=== PATIENT | female | born 1985 | race Caucasian/White ===

== ENCOUNTER 2018-04-10 07:16 | Emergency (ER) | payer MEDICAID ==
--- NOTE | 2018-04-10 07:29 | ER Document Report ---
ED General - General Stated Complaint: RIGHT HIP PAIN Time Seen by Provider: 04/10/18 07:28 Mode of Arrival: Medic Information source: Patient, Parent TRAVEL OUTSIDE OF THE [place] IN LAST 30 DAYS: No - HPI Notes: 32-year-old female with a history of cerebral palsy presents to the ED with complaints of right hip pain that mother noticed last night. Denies any trauma or falling. Patient did have a colonoscopy yesterday in the morning, patient started complaining she was getting ready for bed. No obrx-meg-alfopty medication is been tried. Per mother patient is grimacing when right hip is touched. Vaccinations are up-to-date. Denies any history of osteoporosis. Denies fevers, chills, chest pain,palpitations, shortness of breath, dyspnea, nausea, vomiting, diarrhea, abdominal pain, hematuria,blurred vision, double vision, loss of vision, speech changes, LH, dizziness, syncope, headaches, wheezing, ST, URI, neck pain, weakness, bowel or bladder dysfunction, saddle anesthesia, numbness or tingling in bilateral upper or lower extremities equally , muscle paralysis, weakness in bilateral upper or lower extremities equally or rash. Denies IV drug use. - Related Data Allergies/Adverse Reactions: No Known Allergies Allergy (Verified 04/10/18 08:02) Past Medical History - General Information source: Patient, Parent - Social History Smoking Status: Never Smoker Family History: Reviewed & Not Pertinent - Past Medical History Cardiac Medical History: Denies: Hx Heart Attack, Hx Hypertension Pulmonary Medical History: Denies: Hx Asthma, Hx Bronchitis, Hx COPD, Hx Pneumonia Neurological Medical History: Reports: Hx Seizures. Denies: Hx Cerebrovascular Accident GI Medical History: Musculoskeletal Medical History: Denies Hx Arthritis Infectious Medical History: Past Surgical History: Denies: Hx Pacemaker - Immunizations Hx Diphtheria, Pertussis, Tetanus Vaccination: No Review of Systems - Review of Systems Constitutional: No symptoms reported EENT: No symptoms reported Cardiovascular: No symptoms reported Respiratory: No symptoms reported Gastrointestinal: No symptoms reported Genitourinary: No symptoms reported Female Genitourinary: No symptoms reported Musculoskeletal: See HPI Skin: No symptoms reported Hematologic/Lymphatic: No symptoms reported Neurological/Psychological: No symptoms reported Physical Exam - Vital signs Vitals: Temp Pulse Resp BP Pulse Ox 97.2 F 84 18 145/92 H 98 04/10/18 07:45 04/10/18 07:45 04/10/18 07:45 04/10/18 07:45 04/10/18 07:45 - Notes Notes: PHYSICAL EXAMINATION: GENERAL: Well-appearing, well-nourished and in no acute distress. HEAD: Atraumatic, normocephalic. EYES: Pupils equal round and reactive to light, extraocular movements intact, conjunctiva are normal. ENT: Nares patent, oropharynx clear without exudates. Moist mucous membranes. NECK: Normal range of motion, supple without lymphadenopathy LUNGS: Breath sounds clear to auscultation bilaterally and equal. No wheezes rales or rhonchi. HEART: Regular rate and rhythm without murmurs ABDOMEN: Soft, nontender, nondistended abdomen. No guarding, no rebound. No masses appreciated. Female : deferred Musculoskeletal: Normal range of motion, no pitting or edema. No cyanosis. right hip noted pain with abduction and extension with initial movement. . dtr + 2 bilaterally and equally in BLE. full motor and sensory function. normal gait. cap refill < 3 seconds. distal pulses + 2 in BLE. lower back examination wnl. No erythema, warmth to touch, deformity, crepitus or obvious asymmetry of the affected leg compared to other of hips equally. NEUROLOGICAL: Normal speech, normal gait. Normal sensory, motor exams. alert, awake. PSYCH: Normal mood, normal affect. SKIN: Warm, Dry, normal turgor, no rashes or lesions noted. Course - Re-evaluation Re-evalutation: 04/10/18 08:33 Afebrile, vitals stable and in no distress female resents for evaluation of right hip pain after she had a normal colonoscopy yesterday. X-rays of the right hip are negative for any acute fractures dislocations. Discussed with patient and parent that her right hip pain is likely due to being on her right side during her colonoscopy yesterday. Advised to give ffir-tap-ebknpge ibuprofen and Tylenol. Patient is not having any pain in her lumbar spine seen on clinical examination. We discussed to follow-up with primary care provider and orthopedic referral given if she is still experiencing pain in 1 week. Advised the patient experiences any fevers, chills, numbness or tingling down bilateral lower extremities or change in bowel or bladder function to return to the emergency room immediately. Low suspicion for open fracture, compartment syndrome, tendon rupture, acute neurovascular injury, retained foreign body, therefore the discharge disposition is reasonable no evidence of peritonitis, sepsis or toxicity. I have reevaluated this patient multiple times and no significant life threatening changes are noted. The patient and I have discussed the diagnosis and risks, and we agree with discharging home with close follow-up with the understanding that symptoms and presentations can change. We also discussed returning to the Emergency Department immediately if new or worsening symptoms occur. 04/10/18 09:38 - Vital Signs Vital signs: Temp Pulse Resp BP Pulse Ox 97.2 F 84 18 145/92 H 98 04/10/18 07:45 04/10/18 07:45 04/10/18 07:45 04/10/18 07:45 04/10/18 07:45 Discharge - Discharge Clinical Impression: Sprain of right hip Condition: Stable Disposition: HOME, SELF-CARE Instructions: Sprain ([facility]) Additional Instructions: Rest, her to pertain ice and heat 20 minutes on 20 minutes off several times a day, follow-up with primary care and branch service specialist within 3 days as needed. If symptoms become worse such as numbness and tingling down leg, fever , abdominal pain, lower back pain etc. return to the emergency room immediately. Return immediately for any new or worsening symptoms. Follow up with primary care provider, call tomorrow to make followup appointment. Referrals: PETAR MELGAR MD [ACTIVE STAFF] - Follow up in 3-5 days (as needed) CARTER LE MD [ACTIVE STAFF] - Follow up as needed
--- NOTE | 2018-04-10 08:42 | RADIOLOGY REPORT (SQ) ---
EXAM DESCRIPTION: HIP RIGHT AP/LATERAL COMPLETED DATE/TIME: 04/10/2018 7:54 am REASON FOR STUDY: new onset pain to right hip, unsure of fall. COMPARISON: None. NUMBER OF VIEWS: Two views. TECHNIQUE: AP pelvis and additional frog-leg view of the right hip. LIMITATIONS: None. FINDINGS: MINERALIZATION: Normal. PRIMARY HIP: No fracture or dislocation. No worrisome bone lesions. OPPOSITE HIP: No fracture or dislocation. No worrisome bone lesions. PUBIS AND ISCHIUM: No fracture. PELVIS: No fracture. SACRUM: No fracture or dislocation. No worrisome bone lesions. LOWER LUMBAR SPINE: No fracture or dislocation. No worrisome bone lesions. No significant disc disea se. SOFT TISSUES: No findings. OTHER: No other significant finding. IMPRESSION: NEGATIVE STUDY OF THE RIGHT HIP AND PELVIS. NO ACUTE POST-TRAUMATIC CHANGES. NO EXPLANAT ION FOR PAIN. TECHNICAL DOCUMENTATION: JOB ID: [id number] [employer]- All Rights Reserved Reading location - IP/workstation name: [email or web address]
[2018-04-10 08:59] VITALS: BP 145/92
== END 2018-04-10 09:20 | disposition home or self-care (01) ==
LOC: ER 07:16
DX: S73.101A Unspecified sprain of right hip, initial encounter (principal); X58.XXXA Exposure to other specified factors, initial encounter
CPT/HCPCS: 99283

== ENCOUNTER → 2018-06-12 | Outpatient (CLI) | payer MEDICAID ==
--- NOTE | 2018-06-13 12:58 | EEG PRO FEE REPORT ---
EEG INTERPRETATION PATIENT NAME: AIMEE MCCARTHY ROOM#: ORDER#: [id number] DATE OF STUDY: 06/12/2018 : 1985 REFERRING MD: ROSA MARIA ORELLANA M.D. 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 This EEG was requested for seizures. EEG Interpretation This EEG was recorded in the awake and drowsy states. The awake EEG was filled with significant muscle artifact impairing interpretation. A briefly seen 8 Hz posterior rhythm was noted on the left with relative suppression on the right. The remainder of the background consisted of a mix of mostly theta with intermittent delta. Drowsiness is characterized by slowing of the background rhythms. Photic stimulation resulted in no significant changes. There were no epileptiform abnormalities noted. The EKG showed a regular rhythm. EEG Classification 1. Generalized background slowing 2. Asymmetry, suppression on the right 3. Significant muscle artifact EEG Impression This EEG is abnormal. It is consistent with diffuse cerebral dysfunction and structural lesion on the right. Correlation with neuroimaging would be of interest. The study was impaired due to significant muscle artifact throughout the recording. INTERPRETING PHYSICIAN: ISA CASTRO M.D. /: MTNORMAN TT: [id number] ID: [id number] /: [id number] TD: [id number] JOB: [id number] cc:Chastity FOURNIER M.D. > MTDD
== END ==
LOC: NEURO 12:28
PROVIDERS: ATTEND Pediatrics
DX: G40.909 Epilepsy, unspecified, not intractable, without status epilepticus (principal); G91.9 Hydrocephalus, unspecified; G93.40 Encephalopathy, unspecified
CPT/HCPCS: 95819

== ENCOUNTER → 2018-06-27 | Outpatient (CLI) | payer MEDICAID ==
[2018-06-27 09:41] LABS: ABSOLUTE BASOPHILS # (AUTO) 0.1 10^3/uL (0.0-0.2); ABSOLUTE LYMPHOCYTES (AUTO) 1.9 10^3/uL (0.5-4.7); ABSOLUTE MONOCYTES (AUTO) 0.3 10^3/uL (0.1-1.4); ABSOLUTE NEUT (AUTO) 2.9 10^3/uL (1.7-8.2); BASOPHILS % (AUTO) 1.1 % (0-2); EOSINOPHILS % (AUTO) 0.4 % (0-6); HEMATOCRIT 42.3 % (36.0-47.0); HEMOGLOBIN 14.2 g/dL (12.0-15.5); LYMPHOCYTES % (AUTO) 35.8 % (13-45); MEAN CORPUSCULAR HGB CONC 33.5 g/dL (32.0-36.0); MEAN CORPUSCULAR VOLUME 84 fl (80-97); MONOCYTES % (AUTO) 6.4 % (3-13); PLATELET COUNT 275 10^3/uL (150-450); RED BLOOD COUNT 5.07 10^6/uL (3.72-5.28); RED CELL DISTRIBUTION WIDTH 18.1 % (11.5-14.0); SEGMENTED NEUTROPHILS % (AUTO) 56.3 % (42-78); TOTAL CELLS COUNTED % (AUTO) 100 %; WHITE BLOOD COUNT 5.2 10^3/uL (4.0-10.5)
[2018-06-27 09:59] LABS: ALANINE AMINOTRANSFERASE 18 U/L (9-52); ALBUMIN 4.4 g/dL (3.5-5.0); ALKALINE PHOSPHATASE 70 U/L (38-126); ANION GAP 10 (5-19); ASPARTATE AMINO TRANSFERASE 16 U/L (14-36); BILIRUBIN,DIRECT 0.2 mg/dL (0.0-0.4); BILIRUBIN,TOTAL 0.3 mg/dL (0.2-1.3); BLOOD UREA NITROGEN 8 mg/dL (7-20); CALCIUM 9.8 mg/dL (8.4-10.2); CARBON DIOXIDE 25 mmol/L (22-30); CHLORIDE 106 mmol/L (98-107); GLUCOSE 105 mg/dL (75-110); POTASSIUM 4.1 mmol/L (3.6-5.0); SODIUM 141.1 mmol/L (137-145); TOTAL PROTEIN 7.7 g/dL (6.3-8.2)
== END ==
LOC: OD 07:53
PROVIDERS: ATTEND Internal Medicine Cardiovascular Disease
DX: R60.9 Edema, unspecified (principal); G40.909 Epilepsy, unspecified, not intractable, without status epilepticus; G93.40 Encephalopathy, unspecified; G91.9 Hydrocephalus, unspecified; F79 Unspecified intellectual disabilities; Z98.2 Presence of cerebrospinal fluid drainage device
CPT/HCPCS: 36415; 80053; 80156; 83880; 84443; 85025

== ENCOUNTER 2018-08-14 05:14 | Day surgery (SDC) | payer MEDICAID ==
[~2018-08-14 05:14] MED LIST: LACTATED RINGERS 1000 ML IV PRN; LIDOCAINE 0.5% INJ-PF (5 MG/ML) 50 ML SDV SUBCUT PRN
[2018-08-14] MEDS ORDERED: LIDOCAINE 1% INJ-PF (10 MG/ML) 30 ML SDV ONE (06:45)
[2018-08-14] MEDS ORDERED: MIDAZOLAM 2 MG/2 ML INJ ONE (06:51)
[2018-08-14] MEDS ORDERED: FENTANYL CITRATE INJ/PF 100 MCG/2 ML AMPUL ONE (06:51)
[2018-08-14] MEDS ORDERED: EPHEDRINE SULFATE INJ 50 MG/1 ML AMPULE ONE (06:51)
[2018-08-14] MEDS ORDERED: PROPOFOL INJ 200 MG/20 ML VIAL IV ONE (06:52)
[2018-08-14] MEDS ORDERED: OXYCODONE-ACETAMINOPHEN 5-325 MG TABLET PO PRN ×2 (07:19)
[2018-08-14] MEDS ORDERED: MORPHINE SULFATE 10 MG/ML INJ IV PRN (07:19)
[2018-08-14] MEDS ORDERED: DIPHENHYDRAMINE HCL 50 MG/ML VIAL IV PRN (07:19)
[2018-08-14] MEDS ORDERED: MEPERIDINE HCL/PF INJ 25 MG/1 ML DISP.SYRIN IV PRN (07:19)
[2018-08-14] MEDS ORDERED: PROMETHAZINE HCL INJ 25 MG/1 ML VIAL IV PRN ×2 (07:19)
[2018-08-14] MEDS ORDERED: ONDANSETRON HCL INJ/PF 4 MG/2 ML SDV IV PRN (07:19)
[2018-08-14] MEDS ORDERED: FENTANYL CITRATE INJ/PF 100 MCG/2 ML AMPUL IV PRN ×3 (07:19)
--- NOTE | 2018-08-14 07:56 | OPERATIVE REPORT E ---
Operative Report NAME: AIMEE MCCARTHY : 1985 AGE: 32Y DATE OF SURGERY: 08/14/2018 ROOM: PREOPERATIVE DIAGNOSES: 1. Cerebral palsy. 2. Vaginal discharge, needs exam under anesthesia. POSTOPERATIVE DIAGNOSES: 1. Cerebral palsy. 2. Vaginal discharge, needs exam under anesthesia. PROCEDURE: Exam under anesthesia, Pap *------* smear, HPV screening, SD screening. SURGEON: AJ HUMPHREY M.D. COMPLICATIONS: None. ANESTHESIA: LMAC. FINDINGS: Normal pelvis, normal cervix. No adnexal masses appreciated. No vaginal lesions were noted. Intact hymenal ring was noted upon examination. No lesions in the vulva were noted. A mucusy-type vaginal discharge was present. Pap smear was performed. DESCRIPTION OF PROCEDURE: The patient was taken to the operating room and placed supine in the lithotomy position after adequate anesthesia was ascertained to protect it the entire time. Using a pediatric speculum, the cervix was identified and vagina was noted. Above noted findings were appreciated. Pap smear was obtained and taken to the office for processing. At completion of procedure, patient awakened and taken to recovery room in stable condition. DICTATING PHYSICIAN: AJ HUMPHREY M.D. [id number] PHY#: [id number] ID: [id number] JOB#: [id number] ACCT: [id number] cc:AJ HUMPHREY M.D. >
[2018-08-14 08:33] VITALS: BP 129/92
== END 2018-08-14 08:40 | disposition home or self-care (01) ==
LOC: OROUT 05:14
PROVIDERS: ATTEND Specialist
DX: N94.4 Primary dysmenorrhea (principal); G80.2 Spastic hemiplegic cerebral palsy; N89.8 Other specified noninflammatory disorders of vagina
CPT/HCPCS: 36415; 84132; 81025; 57410; J2250; J2704; 940; J3010; J3490

== ENCOUNTER → 2018-11-20 | Outpatient (CLI) | payer MEDICAID ==
--- NOTE | 2018-11-20 12:16 | RADIOLOGY REPORT (SQ) ---
EXAM DESCRIPTION: CT RT LOWER EXTREMITY WITHOUT COMPLETED DATE/TIME: 11/20/2018 11:59 am REASON FOR STUDY: PAIN IN R HIP M25.551 PAIN IN RIGHT HIP COMPARISON: None. TECHNIQUE: Axial imaging performed through the right hip with reformatted coronal and sagittal imagi ng windowed for bone and soft tissues. Images saved to PACS. 3D IMAGING: Were 3D images as MIP, SSD, or volume rendering performed at the work station? Yes. All CT scanners at this facility use dose modulation, iterative reconstruction, and/or weight based d osing when appropriate to reduce radiation dose to as low as reasonably achievable (ALARA). [facility]: Dose Right [facility]: CareDose [facility]: Dose Right [facility]: Teradose 4D [facility]: [employer] LIMITATIONS: None. RADIATION DOSE: CT Rad equipment meets quality standard of care and radiation dose reduction techniq ues were employed. CTDIvol: 26.5 mGy. DLP: 799 mGy-cm. mGy. FINDINGS: SOFT TISSUES: No obvious swelling or foreign body. BONES: No acute fracture. No dislocation. MINERALIZATION: Normal. OTHER: No other significant finding. IMPRESSION: NO ACUTE OR SIGNIFICANT FINDING. TECHNICAL DOCUMENTATION: JOB ID: [id number] Quality ID # [id number]: Final reports with documentation of one or more dose reduction techniques (e.g., Au tomated exposure control, adjustment of the mA and/or kV according to patient size, use of iterative reconstruction technique) 2010 [employer]- All Rights Reserved Reading location - IP/workstation name: [email or web address]
== END ==
LOC: RAD 10:46
PROVIDERS: ATTEND Family Medicine
DX: M25.551 Pain in right hip (principal)

== ENCOUNTER 2019-11-27 17:44 | Emergency (ER) | payer MEDICAID ==
[2019-11-27 18:17] VITALS: BP 168/71
--- NOTE | 2019-11-27 19:13 | ER Document Report ---
ED General - General Chief Complaint: Fall Stated Complaint: FALL,HEAD PAIN Primary Care Provider: ROX SALVADOR MD [Primary Care Provider] - Follow up as needed Mode of Arrival: Medic Information source: Parent, [facility] Records Cannot obtain history due to: Mentally challenged Notes: 33-year-old female presents after a trip and fall where she struck her head on s teps. Fall was witnessed. There is no loss of consciousness. Patient does have developmental delay and has 24-hour care. She is unable to provide any history. She denies any pain. TRAVEL OUTSIDE OF THE [place] IN LAST 30 DAYS: No - HPI Onset: Just prior to arrival Onset/Duration: Sudden - Related Data Allergies/Adverse Reactions: No Known Allergies Allergy (Verified 04/10/18 08:02) Home Medications: caebamazepine 300mg BID, Spironlactone 50mg BID, Furosemide 20mg, Risperidone 0.5mg BID. Past Medical History - General Information source: Patient - Social History Smoking Status: Never Smoker Frequency of alcohol use: None Drug Abuse: None Lives with: Family Family History: Reviewed & Not Pertinent Patient has suicidal ideation: No Patient has homicidal ideation: No - Past Medical History Cardiac Medical History: Denies: Hx Coronary Artery Disease, Hx Heart Attack, Hx Hypertension Pulmonary Medical History: Denies: Hx Asthma, Hx Bronchitis, Hx COPD, Hx Pneumonia Neurological Medical History: Reports: Hx Seizures - 2011. Denies: Hx Cerebrovascular Accident Renal/ Medical History: Denies: Hx Peritoneal Dialysis GI Medical History: Musculoskeletal Medical History: Denies Hx Arthritis Infectious Medical History: Past Surgical History: Reports: Hx Cholecystectomy, Hx Neurologic Surgery - shunt, Hx Tonsillectomy. Denies: Hx Pacemaker - Immunizations Hx Diphtheria, Pertussis, Tetanus Vaccination: No Review of Systems - Review of Systems -: Yes ROS unobtainable due to patient's medical condition Physical Exam - Vital signs Vitals: Temp Pulse Resp BP Pulse Ox 98.8 F 106 H 18 168/71 H 100 11/27/19 17:57 11/27/19 17:57 11/27/19 17:57 11/27/19 17:57 11/27/19 17:57 - Notes Notes: PHYSICAL EXAMINATION: GENERAL: Well-appearing, well-nourished and in no acute distress. HEAD: Atraumatic, normocephalic. EYES: Pupils equal round and reactive to light, extraocular movements intact, conjunctiva are normal. ENT: Nares patent, oropharynx clear without exudates. Moist mucous membranes. NECK: Normal range of motion, supple without lymphadenopathy LUNGS: Breath sounds clear to auscultation bilaterally and equal. No wheezes rales or rhonchi. HEART: Regular rate and rhythm without murmurs ABDOMEN: Soft, nontender, nondistended abdomen. No guarding, no rebound. No masses appreciated. Female : deferred Musculoskeletal: Normal range of motion, no pitting or edema. No cyanosis. NEUROLOGICAL: Cranial nerves grossly intact. GCS 15 PSYCH: Normal mood, normal affect. SKIN: 3 cm linear laceration to the forehead. Course - Re-evaluation Re-evalutation: 11/27/19 19:26 Presentation of head trauma in an otherwise well-appearing patient. No focal neurologic deficits on exam, no evidence of basilar skull fracture on exam without evidence of hemotympanum, raccoon eyes, or periauricular hematoma. No papilledema. Patient is not on anticoagulation. GCS is 15. No loss of con sciousness. No episodes of vomiting. Patient is therefore negative via Delta head CT criteria and CT imaging will not be obtained at this time. Laceration repair was performed with Dermabond. - Vital Signs Vital signs: Temp Pulse Resp BP Pulse Ox 98.8 F 106 H 18 168/71 H 100 11/27/19 17:57 11/27/19 17:57 11/27/19 17:57 11/27/19 17:57 11/27/19 17:57 Procedures - Laceration/Wound Repair Upper Face Time completed: 19:26 Wound length (cm): 3 Wound's Depth, Shape: Superficial, Linear Laceration pre-procedure: Sterile PPE donned, Sterile drapes applied Volume Anesthetic (mLs): 0 Wound explored: Clean Irrigated w/ Saline (mLs): 500 Wound Repaired With: Dermabond Discharge - Discharge Clinical Impression: Forehead laceration Qualifiers: Encounter type: initial encounter Qualified Code(s): S01.81XA - Laceration without foreign body of other part of head, initial encounter Fall Qualifiers: Encounter type: initial encounter Qualified Code(s): W19.XXXA - Unspecified fall, initial encounter Condition: Good Disposition: HOME, SELF-CARE Instructions: Laceration Care ([facility]), Scalp Laceration ([facility]), Soap Cleansing ([facility]) Additional Instructions: Please keep wound clean and dry for the next 24 hours. Please return to the emergency department if you notice any drainage from the wound, redness, develop a fever or any other symptoms concerning to you. You have likely sustained a contusion (bruise) to your head. If you had a CT scan done, it did not show any evidence of serious injury or bleeding. Symptoms to expect from a concussion include nausea, mild to moderate headache, difficulty concentrating or sleeping, and mild lightheadedness. These symptoms should improve over the next few days to weeks. Return to the emergency department or follow-up with your primary care doctor if your symptoms are not improving over this time. Signs of a more serious head injury include vomiting, severe headache, excessive sleepiness or confusion, and weakness or numbness in your face, arms or legs. Return immediately to the Emergency Department if you experience any of these more concerning symptoms. Rest, avoid strenuous physical or mental activity, and avoid activities that could potentially result in another head injury until all your symptoms from this head injury are completely resolved for at least 2-3 weeks. If you participate in sports, get cleared by your doctor or marine mammal trainer before returning to play. You may take ibuprofen or acetaminophen over the counter according to label instructions for mild headache or scalp soreness. Follow up with your [id number] hours for further care or return to the ED IMMEDIATELY if symptoms worsen or you have any concerns. If you cannot afford to follow up with your primary care physician a list of low cost clinics have been provided at the end of your discharge papers as well. Most prescribed medications have multiple side effects. The safest thing to do is when filling your prescription speak to your pharmacist regarding possible interactions with your normal home medications and over the counter medications such as Ibuprofen, Tylenol, Benadryl. If you experience any symptoms that cause you discomfort or concern you should discontinue the medication immediately and return to the emergency room or call your primary care physician. Forms: Elevated Blood Pressure Referrals: ROX SALVADOR MD [Primary Care Provider] - Follow up as needed
== END 2019-11-27 19:20 | disposition home or self-care (01) ==
LOC: ER 17:44
PROC: 0HQ1XZZ Repair Face Skin, External Approach (ICD-10-PCS; principal; 2019-11-27)
DX: S01.81XA Laceration without foreign body of other part of head, initial encounter (principal); R51 Headache; W01.198A Fall on same level from slipping, tripping and stumbling with subsequent striking against other object, initial encounter; Z79.899 Other long term (current) drug therapy
CPT/HCPCS: 99282

== ENCOUNTER → 2020-07-06 | Outpatient (CLI) | payer MEDICAID ==
--- NOTE | 2020-07-06 16:28 | RADIOLOGY REPORT (SQ) ---
EXAM DESCRIPTION: U/S NON-OB PELVIS W/O DOP IMAGES COMPLETED DATE/TIME: 07/06/2020 4:18 pm REASON FOR STUDY: (R10.9)UNSPECIFIED ABDOMINAL PAIN R10.2 PELVIC AND PERINEAL PAINR10.32 LEFT LOWE R QUADRANT PAINR10.9 UNSPECIFIED ABDOMINAL PAIN COMPARISON: None. TECHNIQUE: Dynamic and static grayscale images acquired of the pelvis via transabdominal approach an d recorded on PACS. Additional selected color Doppler and spectral images recorded. LIMITATIONS: Markedly limited due to overlying bowel gas. FINDINGS: UTERUS: Contour normal. No mass. ENDOMETRIAL STRIPE: No focal or generalized thickening. No masses. CERVIX: No nabothian cysts. RIGHT OVARY AND DOPPLER: Ovary not visualized due to poor acoustic window. LEFT OVARY AND DOPPLER: Ovary not visualized due to poor acoustic window. FREE FLUID: None noted. OTHER: No other significant finding. MEASUREMENTS: UTERUS: 3.3 x 3.6 x 7.1 cm. ENDOMETRIAL STRIPE: 7.4 mm. RIGHT OVARY: Not visualized. LEFT OVARY: Not visualized. IMPRESSION: MARKEDLY LIMITED STUDY. THE UTERUS APPEARS GROSSLY UNREMARKABLE. OVARIES NOT VISUALIZE D. TECHNICAL DOCUMENTATION: JOB ID: [id number] 2010 [employer]- All Rights Reserved Rev Reading location - IP/workstation name: [email or web address]
== END ==
LOC: RAD 15:23
PROVIDERS: ATTEND Registered Nurse
DX: R10.2 Pelvic and perineal pain (principal); R10.32 Left lower quadrant pain; R10.9 Unspecified abdominal pain
CPT/HCPCS: 76856

== ENCOUNTER → 2020-07-21 | Outpatient (CLI) | payer MEDICAID ==
--- NOTE | 2020-07-21 10:43 | RADIOLOGY REPORT (SQ) ---
EXAM DESCRIPTION: CT ABD/PELVIS WITH IV ORAL IMAGES COMPLETED DATE/TIME: 07/21/2020 8:15 am REASON FOR STUDY: UNSPECIFIED ABDOMINAL PAIN R10.9 UNSPECIFIED ABDOMINAL PAIN COMPARISON: 04/19/2011 TECHNIQUE: CT scan of the abdomen and pelvis performed using helical scanning technique with dynamic intravenous contrast injection. No oral contrast. Images reviewed with lung, soft tissue, and bone windows. Reconstructed coronal and sagittal MPR images reviewed. Delayed images for evaluation of the urinary system also acquired. All images stored on PACS. All CT scanners at this facility use dose modulation, iterative reconstruction, and/or weight based d osing when appropriate to reduce radiation dose to as low as reasonably achievable (ALARA). [facility]: Dose Right [facility]: CareDose [facility]: Dose Right [facility]: Teradose 4D [facility]: [employer] CONTRAST TYPE AND DOSE: contrast/concentration: Isovue 350.00 mmol/ml; Total Contrast Delivered: 100 .0 ml; Total Saline Delivered: 36.9 ml RENAL FUNCTION: None required. The patient is less than 50 years old. RADIATION DOSE: CT Rad equipment meets quality standard of care and radiation dose reduction techniq ues were employed. CTDIvol: 10.1 - 10.2 mGy. DLP: 1054 mGy-cm.. LIMITATIONS: None. FINDINGS: LOWER CHEST: No significant findings. No nodules or infiltrates. LIVER: Normal size. No masses. No dilated ducts. SPLEEN: Normal size. No focal lesions. PANCREAS: No masses. No significant calcifications. No adjacent inflammation or peripancreatic fluid collections. Pancreatic duct not dilated. GALLBLADDER: Surgically absent. ADRENAL GLANDS: No significant masses or asymmetry. RIGHT KIDNEY AND URETER: No solid masses. No significant calcifications. No hydronephrosis or hyd roureter. LEFT KIDNEY AND URETER: No solid masses. No significant calcifications. No hydronephrosis or hydr oureter. AORTA AND VESSELS: No aneurysm. No dissection. Renal arteries, SMA, celiac without stenosis. RETROPERITONEUM: No retroperitoneal adenopathy, hemorrhage or masses. BOWEL AND PERITONEAL CAVITY: No masses or inflammatory changes. No free fluid or peritoneal masses. APPENDIX: Normal. PELVIS: No mass. No free fluid. Normal bladder. ABDOMINAL WALL: No masses. No hernias. BONES: No significant or acute findings. OTHER: Incidental note is made of a partially imaged peritoneal shunt which traverses the right anter ior chest, entering the abdomen adjacent to the costochondral cartilage, terminating posterior inferi or to the right hepatic lobe. IMPRESSION: No evidence of acute intra-abdominal infectious/inflammatory process. Partially imaged peritoneal shunt without evidence of gross complication. TECHNICAL DOCUMENTATION: JOB ID: [id number] Quality ID # [id number]: Final reports with documentation of one or more dose reduction techniques (e.g., Au tomated exposure control, adjustment of the mA and/or kV according to patient size, use of iterative reconstruction technique) 2010 [employer]- All Rights Reserved Reading location - IP/workstation name: [email or web address] BEDS AT THE [facility]-
== END ==
LOC: RAD 07:24
PROVIDERS: ATTEND Registered Nurse
DX: R10.9 Unspecified abdominal pain (principal)
CPT/HCPCS: 74177; 82565